=== PATIENT | female | born 1960 | race Hispanic/Latino ===

== ENCOUNTER 2017-04-19 12:50 | Emergency (ER) | payer BC ==
[~2017-04-19] VITALS: Ht 154.9 cm; Wt 104.3 kg
== END 2017-04-19 13:43 | disposition home or self-care (01) ==
LOC: ED 12:50
DX: S61.210A Laceration without foreign body of right index finger without damage to nail, initial encounter (principal); X58.XXXA Exposure to other specified factors, initial encounter; Y92.098 Other place in other non-institutional residence as the place of occurrence of the external cause
CPT/HCPCS: 90471; 90715; 99282

== ENCOUNTER 2020-07-23 15:50 | Outpatient (CLI) | payer OTHER | END 2020-07-23 21:04 | disposition home or self-care (01) | LOC: RAD 15:50 | PROVIDERS: ATTEND Internal Medicine | DX: M25.532 Pain in left wrist (principal); R05 Cough ==